=== PATIENT | female | born 1930 | race Caucasian/White ===

== ENCOUNTER 2016-06-26 13:33 | Outpatient (CLI) | payer MEDICARE | END 2016-06-26 13:34 | disposition home or self-care (01) | DX: D64.9 Anemia, unspecified (principal); R53.83 Other fatigue ==

== ENCOUNTER 2016-08-07 10:14 | Outpatient (CLI) | payer MEDICARE ==
[2016-08-07 18:18] LABS: BASOPHILS % (AUTO) 1.1 %; EOSINOPHILS # (AUTO) 0.2 10^3/uL (0.0-0.7); EOSINOPHILS % (AUTO) 3.4 %; HCT - HEMATOCRIT 40.4 % (37.0-47.0); HGB - HEMOGLOBIN 13.6 g/dL (12.0-16.0); LYMPHOCYTES # (AUTO) 1.6 10^3/uL (1.5-3.5); MEAN CORPUSCULAR HEMOGLOBIN 32.2 pg (27.0-31.0); MEAN CORPUSCULAR HGB CONC 33.6 g/dL (32.0-36.0); MEAN CORPUSCULAR VOLUME 95.8 fL (81.0-99.0); MEAN PLATELET VOLUME 8.5 fL (7.9-10.8); MONOCYTES # (AUTO) 0.3 10^3/uL (0.0-1.0); MONOCYTES % (AUTO) 7.3 %; NEUTROPHILS # (AUTO) 2.5 10^3/uL (1.5-6.6); NEUTROPHILS % (AUTO) 53.2 %; RED BLOOD COUNT 4.22 10^6/uL (4.20-5.40); RED CELL DISTRIBUTION WIDTH 13.8 % (12.0-15.0); UNCORRECTED WHITE BLOOD COUNT 4.6 x10^3/uL; WHITE BLOOD COUNT 4.6 x10^3/uL (4.8-10.8)
[2016-08-07 18:29] LABS: ALBUMIN/GLOBULIN RATIO 1.8 (1.0-2.2); BILIRUBIN,TOTAL 0.8 mg/dL (0.2-1.0); BUN - BLOOD UREA NITROGEN 15 mg/dL (6-20); CALCIUM 9.9 mg/dL (8.5-10.3); CARBON DIOXIDE - CO2 27 mmol/L (21-32); CHLORIDE 102 mmol/L (101-111); CHOL/HDL RATIO 3.7 (<4.4); CHOLESTEROL 281 mg/dL; CREATININE 0.7 mg/dL (0.4-1.0); GFR - MDRD 80 (>89); GLUCOSE 94 mg/dL (70-100); HDL CHOLESTEROL 76 mg/dL; LDL/HDL RATIO 2.4 (<4.4); POTASSIUM 3.8 mmol/L (3.5-5.0); SODIUM 137 mmol/L (135-145); TOTAL PROTEIN 6.5 g/dL (6.7-8.2); TRIGLYCERIDES 95 mg/dL; VLDL CHOLESTEROL 19 mg/dL
[2016-08-07 18:49] LABS: THYROID STIMULATING HORMONE 1.77 uIU/mL (0.34-5.60)
== END 2016-08-07 10:15 | disposition home or self-care (01) ==
LOC: LAB.F 10:14
PROVIDERS: ATTEND Nurse Practitioner Family
DX: Z00.00 Encounter for general adult medical examination without abnormal findings (principal)
CPT/HCPCS: 36415; 80053; 80061; 82306; 84436; 84439; 84443; 84481; 85025

== ENCOUNTER 2019-12-31 17:16 | Outpatient (CLI) | payer MEDICARE | END 2019-12-31 17:17 | disposition critical access hospital (66) | LOC: EMS 17:16 | PROVIDERS: ATTEND Surgery | DX: S69.91XA Unspecified injury of right wrist, hand and finger(s), initial encounter (principal); M54.9 Dorsalgia, unspecified; W01.0XXA Fall on same level from slipping, tripping and stumbling without subsequent striking against object, initial encounter; Y92.009 Unspecified place in unspecified non-institutional (private) residence as the place of occurrence of the external cause | CPT/HCPCS: A0425; A0429 ==

== ENCOUNTER 2019-12-31 17:46 | Emergency (ER) | payer MEDICARE ==
--- NOTE | 2019-12-31 18:18 | ED Physician Documentation ---
History of Present Illness - Stated complaint Stated Complaint: GLF - Chief complaint Chief Complaint: Trauma Ext - History obtained from History obtained from: Patient - Additonal information Additional information: 89-year-old woman presents by ambulance after a trip and fall. She says she fell on an outstretched hand and has moderate right wrist pain and also some upper mid back pain. No head or neck injury. No other injuries. She says she was unable to get up because of pain and a neighbor came over and helped her up and then called the ambulance. That said she feels safe to go home if it is only musculoskeletal injuries. Review of Systems Constitutional: denies: Fever, Chills Cardiac: reports: Reviewed and negative Respiratory: reports: Reviewed and negative GI: reports: Reviewed and negative PD PAST MEDICAL HISTORY - Present Medications Home Medications: Ambulatory Orders Medication Instructions Recorded Confirmed HYDROcod/ACETAM 5/325 [[place] 5/325] 1 - 2 ea PO Q6H PRN #15 tablet 12/31/19 - Allergies Allergies/Adverse Reactions: Allergies Allergy/AdvReac Type Severity Reaction Status Date / Time No Known Drug Allergies Allergy Verified 12/31/19 18:01 PD ED PE NORMAL - Vitals Vital signs reviewed: Yes - General General: Alert and oriented X 3, No acute distress - HEENT HEENT: PERRL, EOMI - Neck Neck: Supple, no meningeal sign, No bony TTP - Cardiac Cardiac: RRR, No murmur - Respiratory Respiratory: No respiratory distress, Clear bilaterally - Abdomen Abdomen: Non tender - Extremities Extremities: Other (Quite tender over the distal dorsal wrist and some tenderness over the metacarpal heads on the right. Mild tenderness of the spine around T8, no other spinal tenderness.) - Neuro Neuro: Alert and oriented X 3, Normal speech Results - Vitals Vitals: Vital Signs - 24 hr 12/31/19 12/31/19 12/31/19 17:51 20:01 20:40 Temperature 36.9 C Heart Rate 81 73 83 Respiratory 18 18 21 Rate Blood Pressure 143/70 H 135/79 H 154/62 H O2 Saturation 95 97 95 12/31/19 12/31/19 22:00 23:02 Temperature 36.9 C 36.9 C Heart Rate 81 80 Respiratory 18 18 Rate Blood Pressure 164/77 H 162/75 H O2 Saturation 98 98 Oxygen O2 Source Room air PD MEDICAL DECISION MAKING - ED course ED course: Care to Dr Leiva at shift chg pending XRs. Departure - Departure Disposition: 01 Home, Self Care Clinical Impression: Fracture of wrist Qualifiers: Encounter type: initial encounter Fracture type: closed Laterality: right Qualified Code(s): S62.101A - Fracture of unspecified carpal bone, right wrist, initial encounter for closed fracture Condition: Good Instructions: ED Sling, ED Splint Care Fiberglass, ED Fx Wrist General Follow-Up: Patria Padilla ARNP [Primary Care Provider] - Kingston Reyes MD [Provider Admit Priv/Credential] - Prescriptions: HYDROcod/ACETAM 5/325 [[place] 5/325] 1 - 2 ea PO Q6H PRN #15 tablet PRN Reason: Pain Comments: Follow up with orthopedic surgery within next 2-3 days; this might require a referral from your primary care provider. You can contact your insurance provider or your primary care provider's office to inquire as to the process of getting in to see the orthopedic surgeon. Discharge Date/Time: 12/31/19 23:10
--- NOTE | 2019-12-31 20:09 | XRAY Report ---
PROCEDURE: Wrist 4 View RT INDICATIONS: wrist inj TECHNIQUE: 4 views of the wrist were acquired. COMPARISON: None FINDINGS: Bones: There is an impacted, comminuted, intra-articular fracture of the distal right radius. There i s likely a minimally displaced styloid fracture as well. Carpal bones appear intact. Severe degenerat bertrand changes are present at the first CMC joint and the triscaphe joint. Scaphoid view: The scaphoid is intact where visualized. Soft tissues: No suspicious soft tissue calcifications. IMPRESSION: 1. Impacted comminuted distal radial fracture and displaced ulnar styloid fracture. Reviewed by: Radha Bosch MD on 12/31/2019 8:08 PM PST Approved by: Radha Bosch MD on 12/31/2019 8:08 PM PST Station ID: [id number]
--- NOTE | 2019-12-31 20:11 | XRAY Report ---
PROCEDURE: Hand 3 View RT INDICATIONS: hand inj TECHNIQUE: 3 views of the hand(s) acquired. COMPARISON: None FINDINGS: Bones: There is severe interphalangeal joint space narrowing and gull wing osteophytes. Impacted, int ra-articular distal radial fracture and displaced ulnar styloid fracture are noted. No other fracture or dislocation. Severe degenerative changes are present at the first CMC joint and the triscaphe jamil nt. Soft tissues: No suspicious soft tissue calcifications. IMPRESSION: 1. Partially characterized distal radial and ulnar fractures. 2. Severe osteoarthritis. Reviewed by: Radha Bosch MD on 12/31/2019 8:10 PM [facility] Approved by: Radha Bosch MD on 12/31/2019 8:10 PM PST Station ID: [id number]
--- NOTE | 2019-12-31 21:02 | XRAY Report ---
PROCEDURE: Thoracic Spine 2 View INDICATIONS: back inj TECHNIQUE: 3 views of the thoracic spine were acquired. COMPARISON: None. FINDINGS: Bones: No fractures or dislocations. There is mild S shaped curvature of the thoracic spine. There is diffuse intervertebral disc space narrowing, endplate sclerosis, and osteophytosis. No compression deformities. 12 pairs of ribs are noted, and appear intact where visualized. Soft tissues: No paravertebral stripe thickening. Atheromatous calcifications are present at the tho racic arch. IMPRESSION: 1. 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 No acute compression deformities. 2. Aortic atherosclerosis. Reviewed by: Radha Bosch MD on 12/31/2019 9:01 PM PST Approved by: Radha Bosch MD on 12/31/2019 9:01 PM [facility] Station ID: [id number]
[2019-12-31] MEDS ORDERED: HYDROcod/ACET 5/325 Prepack 4 PO STA (22:46)
[2019-12-31 23:04] VITALS: BP 162/75
--- NOTE | 2020-01-01 02:12 | ED Physician Documentation ---
ED Addendum - Addendum Addendum: 01/01/20 02:07 Received sign out from Dr. Dickson pending results of xrays. Xrays reveal right wrist fracture, chronic findings on thoracic spine xrays. On my exam, she is AAOx3,NAD, NVI right wrist and hand and declines pain medications. Sugar tong splint placed by tech followed by sling; reexam reveals RUE at fingers is NVI with brisk capillary refill, LTS intact, normal color and normal warmth to touch. She again declines analgesics, but given take-home hydrocodone with rx for same, as I anticipate she will have worsening pain over the next 1-2 days that might not be controlled with OTC medications. Patient's friend will take patient to her (friend's) home tonight and start tomorrow morning arranging for follow-up as well as looking into arrangements for care going forward for this patient who is right-hand dominant and lives alone. I offered to have SW consult, explaining that this would not be available until the morning. Patient and friend decline and tell me that they are comfortable with patient going to stay with the friend until they arrange f/u
--- NOTE | 2020-01-01 02:18 | ED Physician Documentation ---
Procedures - Splinting Location: right upper extremity/wrist Hand-Made Type: orthoglass Splint: sugar-tong Pre-Proc Neuro Vasc Exam: normal Post-Proc Neuro Vasc Exam: normal, unchanged from pre-exam Progress: splint placed by radio/tv technician
== END 2019-12-31 23:10 | disposition home or self-care (01) ==
LOC: EDUNIT# → ED 17:46
DX: S52.571A Other intraarticular fracture of lower end of right radius, initial encounter for closed fracture (principal); S52.611A Displaced fracture of right ulna styloid process, initial encounter for closed fracture; W01.0XXA Fall on same level from slipping, tripping and stumbling without subsequent striking against object, initial encounter; Y92.009 Unspecified place in unspecified non-institutional (private) residence as the place of occurrence of the external cause; M47.814 Spondylosis without myelopathy or radiculopathy, thoracic region; M19.041 Primary osteoarthritis, right hand
CPT/HCPCS: 29125; 72070; 99284

== ENCOUNTER 2020-02-12 07:36 | Outpatient (CLI) | payer MEDICARE ==
--- NOTE | 2020-02-12 14:40 | XRAY Report ---
PROCEDURE: Wrist 3 View RT INDICATIONS: RIGHT WRIST COLLES Fx TECHNIQUE: 3 views of the wrist were acquired. COMPARISON: FINDINGS: Bones: No dislocations. No suspicious bony lesions. There is a distal radius: Fracture impaction and mild dorsal angulation. There is a ulnar styloid process base fracture, not significantly displac ed. Scaphoid view: Not obtained but the scaphoid visualized appears free of trauma. Soft tissues: No suspicious soft tissue calcifications. IMPRESSION: The distal radius Colace fracture, additional ulnar styloid process fracture, probable intra-articula r extension at the distal radius fracture, which is mildly dorsally angulated. Reviewed by: Justice Galvin MD on 02/12/2020 2:39 PM PST Approved by: Justice Galvin MD on 02/12/2020 2:39 PM PST Station ID: [id number]
== END 2020-02-12 23:59 | disposition home or self-care (01) ==
LOC: DI.N 07:36
PROVIDERS: ATTEND Orthopaedic Surgery
DX: S52.531A Colles' fracture of right radius, initial encounter for closed fracture (principal); M25.532 Pain in left wrist

== ENCOUNTER 2022-03-18 15:43 | Outpatient (CLI) | payer MEDICARE | END 2022-03-18 15:44 | disposition short-term general hospital (02) | LOC: EMS 15:43 | DX: M25.552 Pain in left hip (principal); R10.32 Left lower quadrant pain; W18.30XA Fall on same level, unspecified, initial encounter; Y93.01 Activity, walking, marching and hiking; Y92.091 Bathroom in other non-institutional residence as the place of occurrence of the external cause | CPT/HCPCS: A0425; A0427 ==